=== PATIENT | female | born 1955 | race Caucasian/White ===

== ENCOUNTER → 2018-04-21 11:52 | Outpatient (CLI) | payer MEDICARE, BC, SELFPAY ==
--- NOTE | 2018-04-21 | DI.ECHO.S_ITS ---
[facility]---------+ [facility] +---------+ : : [address] : [address] [place] : : : : [id number] : : : : Phone: [phone]+ Echocardiogram Report + + :Name: YON FARIAS Study Date: 04/21/2018 Height: 66 in : :[facility] Weight: 263 lb : : Gender: Female BSA: 2.2 m2 : :: 1955 Age: 63 yrs BP: 126/72 mmHg: :Reason For Study: Hypertension : : Performed By: Nica Huitron : :Referring: TADEO ANGEL : + + Interpretation Summary 1) Normal left ventricular size, thickness, size, wall motion, and systolic function (EF 60-65%). 2) Grossly normal right ventricular size and function. 3) Moderate left atrial enlargement. 4) No significant valvular abnormalities. 5) No prior Echo available for comparison. Procedure: A two-dimensional transthoracic echocardiogram with color flow and Doppler was performed. The study quality was technically adequate. There is no prior echocardiogram noted for this patient. The patient was in normal sinus rhythm during the exam. Left Ventricle: The left ventricle is normal in size, wall thickness, and systolic function without any focal wall motion abnormalities. The ejection fraction is estimated to be 60-65%. Diastolic parameters suggest a relaxation abnormality of the left ventricle, consistent with probable normal filling pressures. Right Ventricle: The right ventricle grossly appears normal in size with probable normal systolic function. Atria: The left atrium is moderately dilated. Right atrial size is normal. The interatrial septum is intact with no evidence for an atrial septal defect. Mitral Valve: The mitral valve is normal in structure and function. There is trace mitral regurgitation. Aortic Valve: The aortic valve opens well. There is no aortic valve stenosis. No aortic regurgitation is present. Tricuspid Valve: The tricuspid valve is normal in structure and function. There is trace tricuspid regurgitation. Pulmonic Valve: The pulmonic valve is normal in structure and function. There is a trace or physiologic amount of pulmonic regurgitation. Great Vessels: The aortic root is normal size. The ascending aorta is at the upper limits of normal in size. The aortic arch is normal in size. The inferior vena cava was not well visualized. MMode/2D Measurements & Calculations LVIDd: 5.2 cm Ao root diam: 3.3 cm LVIDs: 3.6 cm Aortic Jxn: 2.7 cm FS: 30.9 % asc Aorta Diam: 3.6 cm EPSS: 1.2 cm Ao Arch Diam (Prox Trans): 2.6 cm IVSd: 0.98 cm LVPWd: 0.89 cm LV khan. diameter/BSA (cm/m^2): 2.3 LV sys. diameter/BSA (cm/m^2): 1.6 LA dimension: 4.2 cm RA long axis: 4.8 cm LA A2 area: 25.8 cm2 RA area: 17.1 cm2 LA A4 area: 23.8 cm2 RA vol: 51.5 ml LA length (vol): 5.8 cm RA : 22.9 ml/m2 LA vol: 90.5 ml IVC diam: 2.5 cm LA vol index: 40.3 ml/m2 RVDd major: 5.3 cm RVD1 (basal): 3.3 cm RVD2 (mid): 2.5 cm Doppler Measurements & Calculations Ao V2 max: 189.0 cm/sec MV E max tu: 72.4 cm/sec Ao V2 mean: 116.2 cm/sec MV A max tu: 71.5 cm/sec Ao max P.3 mmHg MV E/A: 1.0 Ao mean P.5 mmHg Med Peak E' Tu: 4.9 cm/sec Ao V2 VTI: 40.6 cm E/E' med: 14.6 Lat Peak E' Tu: 5.8 cm/sec E/E' lat: 12.5 E/e' average: 13.6 MV dec time: 0.22 sec MV P1/2t: 66.8 msec TR max ut: 246.6 cm/sec MV P1/2t max tu: 71.9 cm/sec TR max P.3 mmHg MVA(P1/2t): 3.3 cm2 PA V2 max: 91.7 cm/sec PA V2 mean: 64.3 cm/sec PA mean P.8 mmHg PA Accel Time: 0.14 sec Reading Physician:05:14 PM
== END ==
PROVIDERS: PCP Family Medicine; Visit Provider Family Medicine
DX: I10 Essential (primary) hypertension (principal)
CPT/HCPCS: 93306

== ENCOUNTER → 2020-04-18 11:05 | Outpatient (CLI) | payer MEDICARE, OTHER, SELFPAY ==
[2020-04-18 14:42] LABS: COVID19 -Nasal RAPID Negative (Negative)
== END ==
PROVIDERS: PCP Family Medicine; Visit Provider Surgery
DX: Z01.818 Encounter for other preprocedural examination (principal); Z11.59 Encounter for screening for other viral diseases
CPT/HCPCS: 87635; C9803